=== PATIENT | male | born 1970 | race African-American/Black ===

== ENCOUNTER 2018-05-19 02:06 | Emergency (ER) | payer OTHER ==
[~2018-05-19] VITALS: Ht 176.1 cm; Wt 84.3 kg
[2018-05-19 02:10] VITALS: Ht 176.1 cm; Wt 84.3 kg
[2018-05-19] MEDS ORDERED: AZIT250T PO (05:20)
[2018-05-19] MEDS ORDERED: GUAI5SYR2 PO (05:20)
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
[2018-05-19 05:30] VITALS: BP 129/89; PULSE 92; RESP 20
== END 2018-05-19 05:33 | disposition home or self-care (01) ==
LOC: FTE 02:06
DX: J40 Bronchitis, not specified as acute or chronic (principal); B20 Human immunodeficiency virus [HIV] disease
CPT/HCPCS: 71045; Z7502